=== PATIENT | male | born 1955 | race Caucasian/White ===

== ENCOUNTER 2019-12-08 09:08 | Observation (INO) | payer MEDICARE ==
[~2019-12-08] VITALS: Ht 175.3 cm; Wt 67.0 kg
[2019-12-08] VITALS (29 sets, daily range): BP systolic 104–206; BP diastolic 56–98; PULSE 65–90; TEMP 97.8–98.1
[~2019-12-08 09:08] MED LIST: CRESTOR5 MG PO
[2019-12-08] MEDS ORDERED: ALBUTEROL0.83 MG/ML IH (09:16)
--- NOTE | 2019-12-08 10:00 | NUR ---
Pt to ct per ambulation, Pt placed on ct table with right side down and pt angled on table. Monitors applied. O2 on at 2l/nc.
--- NOTE | 2019-12-08 10:31 | NUR ---
Specimens obtained by Dr Lopez and placed in formalin. Specimen labeled.
--- NOTE | 2019-12-08 10:35 | NUR ---
Pt has pneumothorax O2 increased to 4l/nc per Dr Lopez instructions. Pt off CT table and to xray for chest xray.
--- NOTE | 2019-12-08 10:51 | NUR ---
Pt back to ct for chest tube placement. Monitors reapplied and O2 continues at 4l/nc.
--- NOTE | 2019-12-08 10:55 | NUR ---
Dr Lopez and Dr Hadley at bedside to place chest tube. 10[address] Chest tube inserted by Dr Hadley. Dr Hadley removed air from pts lung. Pt reports he is breathing easier.
--- NOTE | 2019-12-08 11:39 | NUR ---
Pt arrived to rrom 9 via cart,Report from Vincent Waller.Pt observed to hae chest tube placement post lung biopsy.Dr Ramirez in to see pt.
--- NOTE | 2019-12-08 11:56 | NUR ---
Tylenol 1000mg po at this time for c/o pain rated at a 3 on 0-10 scale.
--- NOTE | 2019-12-08 14:48 | NUR ---
Hospitalist here to see pt.This nurse called [employer] to assist with bed transfer
--- NOTE | 2019-12-08 15:32 | NUR ---
Pt transferred to room 328 by this nurse.Pt on 4 liters oxygen via nasal cannula.Report to Vincent Peck who will take over care.Called Dr Wilson to report pt transferred to room 328.Pt at bedside.
[2019-12-08 16:50] LABS: BASO # 0.1 (0.0-0.2); BASO % 0.7 % (0.0-2.0); EOS # 0.3 (0.0-0.7); GRAN # 9.7 (1.4-6.5); GRAN % 74.6 % (42.2-75.2); HEMATOCRIT 43.5 % (42.0-52.0); HEMOGLOBIN 14.8 g/dl (13.5-18.0); LYMPH % 15.4 % (20.0-51.0); MEAN CELL VOLUME 94 fl (80.0-100.0); MEAN CORPUSCULAR HEMOGLOBIN 32 pg (27.0-31.0); MEAN CORPUSCULAR HGB CONC 34 g/dl (33.0-37.0); MEAN PLATELET VOLUME 7.9 fl (7.4-10.4); MONO # 0.9 (0.1-0.6); PLATELET COUNT 217 K/mm3 (130-400); RED BLOOD COUNT 4.61 M/mm3 (4.20-5.60)
[2019-12-08 17:01] LABS: CALCIUM 9.7 mg/dL (8.4-10.2); CREATININE, serum 0.87 (0.66-1.25); POTASSIUM 4.2 mmol/L (3.4-5.0)
--- NOTE | 2019-12-08 17:10 | NUR ---
Patient brought from the express unit to 325. Spoke with [facility] about admission. Hemilich value placed to waterseal per orders. Dilauidid for pain really helped patient to breathe easier. He was thankful to have the pain relief.
--- NOTE | 2019-12-08 19:00 | NUR ---
PT SITTING ON SIDE OF THE BED ELBOWS ON OVERBED TABLE. A&OX4. PLEASANT AND COOPERATIVE. HEMLICH/DRY SEAL CHEST TUBE TO LT SIDE. NO AIR LEAK NOTED. BREATHING EASY. O2 4LNC TO KEEP SAT 100% PER REQUEST OF SEE ASSESSMENT FOR LUNG SOUNDS. ASSISTED TO BR. VOIDED AND THEN BACK TO SIDE OF BED. DRINKS QUITE A BIT OF COFFEE. CALL LIGHT IN REACH.
--- NOTE | 2019-12-08 19:16 | NUR ---
Patient sitting up in bed. Patient states he is a lot more comfortable and pain is tolerable. Patient ate his whole dinner tray and tolerated well.
--- NOTE | 2019-12-08 22:15 | NUR ---
PT UP TO BR TO VOID. BACK TO SIDE OF BED. DECLINED RECLINER. AUDIBLE LOOSE SECRETIONS NOTED. PT COUGHED HARD. PT HAVING CHEST TUBE SITE PAIN [id number]. SEE MAR FOR DILAUDID GIVEN IV. CALLED RT FOR SVN TREATMENT TO LOOSEN SECRETIONS MORE. NO OTHER RESP DISTRESS NOTED.
--- NOTE | 2019-12-08 23:02 | NUR ---
PT SITTING UP IN BED WITH LEGS CROSSED AND SPLINTING CHEST WITH PILLOWS. PT ABLE TO COUGH SECRETIONS BUT SWALLOWED. CHEST TUBE REMAINS WITHOUT AIR LEAK SECURED TO BED. O2 SPOT CHECK 99% ON 4LNC.NO CHANGE IN RESP STATAUS BUT TOO EARLY FOR [facility].
--- NOTE | 2019-12-09 00:30 | NUR ---
PT RESITG EASIER NOW. PT RELATED ABLE TO COUGH SOME SECRETIONS. NO CHANGE IN RESP STATUS.
[2019-12-09 03:05] VITALS: BP 134/55; PULSE 79; TEMP 97.5
--- NOTE | 2019-12-09 04:48 | NUR ---
PT AWAKE. NO RESP DISTRESS. CHECK TEGAGDERM AT SITE. LOOSE EDGE. SECURED WITH ANOTHER TEGADERM. NO AIR LEAK TO CHEST TUBE. 02 98% ON 4L. ENC COUGH AND DEEP BREATH. PT RELATES JUST WANTS TO GO HOME. NOT SLEEPING VERY MUCH. ANXIOUS.
[2019-12-09 09:09] VITALS: BP 158/58; PULSE 75; TEMP 97.5
[2019-12-09 11:29] VITALS: BP 140/60; PULSE 83; TEMP 97.2
--- NOTE | 2019-12-09 11:30 | NUR ---
Patient has been doing well with his chest tube. He is having pain but is not requiring pain medications. Working on decreasing oxygen demands. Chest tube to water seal. Spoke with radiology multiple times about patients chest x-ray not being done. She stated it did not get done because the order was missed. At this time she called and stated she is stuck in ED. No other changes at this time. Dr Felix aware that chest x-ray has not been completed yet. Call light within reach.
--- NOTE | 2019-12-09 13:41 | NUR ---
SW met with patient to complete intake. Patient states that he lives in [place], [place] with his Janene [phone]. Patient provides that he does not utilize and DME nor does he need assistance with ADL's. Patient provides that his PCP is Dr. Chandler, obtains medications from [facility], and is able to afford his medications at this time. Patient states that he does not have DPOA-HC appointed and does not wish to appoint anyone at this time. Patient states that he was informed that he may go home today, but was unsure. Patient states that he plans to go back to his home in [place] with his and will not need any assistance upon DC due to having the support he needs at home. SW will continue to follow.
[2019-12-09 15:55] VITALS: BP 148/63; PULSE 82; TEMP 98.3
--- NOTE | 2019-12-09 18:41 | NUR ---
Patient has been doing well this afternoon. Has not requested pain medications today. Rating pain at 1-3 on a 0-10 scale. No complaints of nausea. Has been up walking in the hallways. No longer requring oxygen. Chest x-ray was completed around 1430 this afternoon. No results in computer yet. Dr Felix aware. No other changes at this time. Call light within reach.
[2019-12-09 19:32] VITALS: BP 149/64; PULSE 88; TEMP 98.7
--- NOTE | 2019-12-09 20:26 | NUR ---
Pt has been ambulating halls independently. Denies pain. Sits on edge of bed and drinks coffee and water. INT to L AC. No s/s infiltration. Alert/Orientated x4, HR regular, Lung sounds clear, BS present x4. Heimlich tube to upper left chest with clean, dry, dressing intact. Reports last BM yesterday.
[2019-12-09 23:32] VITALS: BP 104/70; PULSE 104; TEMP 98.3
--- NOTE | 2019-12-10 04:00 | NUR ---
PT AWAKE, DENIES PAIN. HAS SMALL BARRELL CHEST TUBE TO LEFT UPPER CHEST, TO WATER SEAL PLEURVAC. DRSG D/I. NO DRAINAGE IN CANNISTER. SL TO LEFT AC INTACT. IS ON ROOM AIR.
[2019-12-10 04:04] VITALS: BP 141/66; PULSE 86; TEMP 97.9
[2019-12-10 05:35] LABS: BASO % 0.6 % (0.0-2.0); EOS # 0.4 (0.0-0.7); EOS % 5.3 % (0-4.0); GRAN # 3.5 (1.4-6.5); GRAN % 52.7 % (42.2-75.2); HEMATOCRIT 37.1 % (42.0-52.0); LYMPH % 30.1 % (20.0-51.0); MEAN CELL VOLUME 93 fl (80.0-100.0); MEAN CORPUSCULAR HEMOGLOBIN 33 pg (27.0-31.0); MEAN CORPUSCULAR HGB CONC 35 g/dl (33.0-37.0); MEAN PLATELET VOLUME 8.3 fl (7.4-10.4); MONO # 0.7 (0.1-0.6); MONO % 11.1 % (1.7-9.3); PLATELET COUNT 188 K/mm3 (130-400); RED BLOOD COUNT 3.98 M/mm3 (4.20-5.60); REDCELL DISTRIBUTION WIDTH-CV 13.8 % (11.5-14.5)
[2019-12-10 05:47] LABS: CALCIUM 9.3 mg/dL (8.4-10.2); CREATININE, serum 0.85 (0.66-1.25); POTASSIUM 4.1 mmol/L (3.4-5.0)
--- NOTE | 2019-12-10 07:12 | NUR ---
CALLED RADIOLOGY TO MAKE SURE CHEST XRAY GETS DONE THIS AM!
[2019-12-10 07:25] VITALS: BP 117/72; PULSE 87; TEMP 97.7
--- NOTE | 2019-12-10 10:33 | NUR ---
Patient sitting up in chair. Physician removed chest tube, patient tolerated well. Minimal complaints of pain.
[2019-12-10 11:28] VITALS: BP 124/56; PULSE 83; TEMP 98
[2019-12-10] MEDS ORDERED: MOTRIN 400400 MG/TAB PO (14:25)
--- NOTE | 2019-12-10 15:00 | NUR ---
X-ray came back. Patient cleared for discharge. Reviewed dishcarge and activity instructions. Patient walked out with all his belongings where was waiting to take him home.
== END 2019-12-10 15:00 | disposition home or self-care (01) ==
LOC: COL.RAD 09:08 → JCC 15:30
PROVIDERS: Student in an Organized Health Care Education/Training Program; ADMIT Internal Medicine Pulmonary Disease
DX: R91.1 Solitary pulmonary nodule (principal); J95.811 Postprocedural pneumothorax; J44.9 Chronic obstructive pulmonary disease, unspecified; I25.10 Atherosclerotic heart disease of native coronary artery without angina pectoris; I73.9 Peripheral vascular disease, unspecified; F17.210 Nicotine dependence, cigarettes, uncomplicated; M19.90 Unspecified osteoarthritis, unspecified site; J32.9 Chronic sinusitis, unspecified; Z79.899 Other long term (current) drug therapy; Z88.5 Allergy status to narcotic agent; Z88.0 Allergy status to penicillin; Z95.1 Presence of aortocoronary bypass graft; Z98.890 Other specified postprocedural states; Z95.828 Presence of other vascular implants and grafts; Z79.82 Long term (current) use of aspirin; Z23 Encounter for immunization; Z80.9 Family history of malignant neoplasm, unspecified
CPT/HCPCS: 99232-AI; 99239; A7041; G0008; G0378; G0379; J1170; J2250